=== PATIENT | female | born 1980 | race Asian ===

== ENCOUNTER 2017-01-03 10:37 | Emergency (ER) | payer OTHER ==
[~2017-01-03] VITALS: Ht 160 cm; Wt 56.7 kg
[2017-01-03 10:41] VITALS: BP_SYST 153
--- NOTE | 2017-01-03 10:53 | NUR ---
Patient to ER bed 6 to gown for evaluation. Side rails up. Report received from Liam NATHAN
--- NOTE | 2017-01-03 10:54 | NUR ---
ER at bedside examining patient.
--- NOTE | 2017-01-03 10:55 | NUR ---
Pt AAO x 4 presents to ED c/o vag spotting noted while wiping. Pt has reports , gestational diabetes.No abd pain or cramping per pt report.Pt denies other significant med hx.
--- NOTE | 2017-01-03 11:00 | NUR ---
Lab at bedside.
[2017-01-03 11:14] LABS: BILIRUBIN,URINE NEGATIVE (NEGATIVE); CLARITY/URINE SL HAZY (CLEAR); COLOR,URINE YELLOW (YELLOW); GLUCOSE,URINE NEGATIVE (NEGATIVE); KETONES,URINE NEGATIVE (NEGATIVE); LEUKOCYTE ESTERASE ,URINE NEGATIVE (NEGATIVE); NITRITE, URINE NEGATIVE (NEGATIVE); PROTEIN URINE NEGATIVE (NEGATIVE); UROBILINOGEN,URINE 0.2 (0.2-1.0)
[2017-01-03 11:17] LABS: BLOOD, URINE TRACE (NEGATIVE)
[2017-01-03 11:22] LABS: BACTERIA,URINE RARE /HPF (None Seen); RBC,URINE 0-3 /HPF (0-3); WBC,URINE 0-3 /HPF (0-3)
[2017-01-03 11:23] LABS: MUCUS,URINE 1+ /LPF (None Seen)
--- NOTE | 2017-01-03 11:25 | NUR ---
Pt receiving US.
[2017-01-03 12:22] VITALS: BP_SYST 148
--- NOTE | 2017-01-03 12:23 | NUR ---
Patient given written and verbal discharge instructions and verbalizes understanding. ER MD discussed with patient the results and treatment provided. Patient in stable condition. ID arm band removed. No prescriptions given. Patient educated on pain management and to follow up with PMD. Pain Scale 0/10 Opportunity for questions provided and answered.
== END 2017-01-03 12:23 | disposition home or self-care (01) ==
LOC: SED 10:37
DX: O09.521 Supervision of elderly multigravida, first trimester (principal); O20.9 Hemorrhage in early pregnancy, unspecified; Z3A.01 Less than 8 weeks gestation of pregnancy
CPT/HCPCS: 36415; 76801; 76817; 81000-TC; 84702-TC; 99285